=== PATIENT | female | born 1945 | race Caucasian/White ===

== ENCOUNTER 2023-03-13 08:14 | Emergency (ER) | payer MEDICARE ==
[~2023-03-13] VITALS: Ht 167.6 cm; Wt 100.0 kg
[~2023-03-13 08:14] MED LIST: ASPI-1264 PO; CALC-212 PO; CHOL100024 PO; CHON PO; DOCU-148 PO; FERR134T2 PO; FOLI1TAB27 PO; GLUC PO; HYDR200T73 PO; MSM PO; VIT D PO
[2023-03-13 08:28] VITALS: BP 130/53; PULSE 119; RESP 22; TEMP 97.1; O2SAT 92
== END 2023-03-13 10:41 | disposition left against medical advice (07) ==
LOC: ER 08:15
DX: R06.02 Shortness of breath (principal); Z53.21 Procedure and treatment not carried out due to patient leaving prior to being seen by health care provider
CPT/HCPCS: 93005; 99281